=== PATIENT | male | born 1965 | race African-American/Black ===

== ENCOUNTER 2016-05-28 23:58 | Emergency (ER) | payer BC, OTHER ==
--- NOTE | ~2016-05-28 | EKG ---
PATIENT: MIKE GREEN UNIT #: [id number] Ventricular Rate: 85 BPM Atrial Rate: 72 BPM P-R Interval: 158 ms QRS Duration: 78 ms Q-T Interval: 360 ms QTC Calculation(Bezet): 428 ms P [place]: 66 degrees Calculated R [place]: 34 degrees Calculated T [place]: 36 degrees Diagnosis Line: Sinus rhythm with occasional Premature ventricular Diagnosis Line: complexes Diagnosis Line: T wave abnormality, consider inferior ischemia Diagnosis Line: Abnormal ECG Diagnosis Line: No previous ECGs available Diagnosis Line: Confirmed by ANNA HUYNH MD ([id number]) on 05/30/2016 Diagnosis Line: 10:56:45 PM INTERPRETING MD: LINO GUAJARDO
--- NOTE | ~2016-05-28 | EKG ---
PATIENT: MIKE GREEN UNIT #: [id number] Ventricular Rate: 51 BPM Atrial Rate: 51 BPM P-R Interval: 174 ms QRS Duration: 82 ms Q-T Interval: 410 ms QTC Calculation(Bezet): 377 ms P [place]: 34 degrees Calculated R [place]: 43 degrees Calculated T [place]: 6 degrees Diagnosis Line: Sinus bradycardia Diagnosis Line: Nonspecific T wave abnormality Diagnosis Line: Otherwise normal ECG Diagnosis Line: No previous ECGs available Diagnosis Line: Confirmed by ANNA HUYNH MD ([id number]) on 05/30/2016 Diagnosis Line: 10:57:22 PM INTERPRETING MD: LINO GUAJARDO
--- NOTE | ~2016-05-28 | CR72 ---
[facility] A Service of [facility] RADIOLOGY TEXT RESULTS PATIENT: MIKE GREEN LOCATION: [facility] : 65 UNIT #: [id number] AGE: [address]: Som Obrien MD SEX: M ORDER DR: [id number] [facility] [address] [place], [place] [address] [id number] MR#: [id number] Acc #: [id number] NAME: MIKE GREEN. : 1965 SEX: M STUDY DATE/TIME: 05/28/2016 21:35 UNIT: [facility] ROOM: STUDY DESCRIPTION: CR Chest Single View Portable Attending Physician: Som Obrien M.D. Ordering Physician: Ed Eugenio Amanda M.D. Primary Care Physician: No Primary Care Physician MEDICAL IMAGING REPORT This report is preliminary unless electronic signature is present EXAM Portable chest. HISTORY Left-sided chest pain x2 days. COMPARISON None. FINDINGS Portable view of the chest demonstrates elevation of the left hemidiaphragm, blunting of the left CP angle, may represent a small left effusion or left basilar atelectasis. Right lung is clear. Low lung volumes with mild pulmonary vascular congestion. Heart size within normal limits. Mediastinum unremarkable. Osseous structures appear normal. Dictated by... Tammy Neri M.D. THIS IS AN ELECTRONICALLY VERIFIED REPORT Tammy Neri M.D. at 05/29/2016 10:53 PM EVI/goldie TD: 05/29/2016 12:47 JOB #: [id number] MEDICAL IMAGING REPORT Page 1 of 1 COPY
[2016-05-28 20:53] LABS: EOSINOPHIL# 0.1 X10e3 (0-0.7); EOSINOPHIL% 1.8 % (0.0-7.0); HEMATOCRIT 45.6 % (38.0-50.0); HEMOGLOBIN 15.2 gm/dL (13.0-16.0); LYMPHOCYTE# 2.1 X10e3 (1.0-3.5); LYMPHOCYTE% 45.7 % (17.0-45.0); MEAN CORPUSCULAR HEMOGLOBIN 31.4 PG (28-34); MEAN CORPUSCULAR HGB CONC 33.4 g/dL (30-36); MEAN PLATELET VOLUME 8.4 FL (6.5-11.5); MONOCYTE# 0.2 X10e3 (0-1.0); MONOCYTE% 4.2 % (3.0-12.0); NEUTROPHIL# 2.1 X10e3 (1.5-7.1); NEUTROPHIL% 47.3 % (40-75); PLATELET COUNT 160 X10e3 (140-420); RED BLOOD COUNT 4.86 X10e (3.90-5.60); RED CELL DISTRIBUTION WIDTH 12.8 % (11.0-15.5); WHITE BLOOD COUNT 4.5 X10e3 (4.0-10.5)
[2016-05-28 20:56] LABS: DIFF IND NO
[2016-05-28 21:19] LABS: BILIRUBIN, DIRECT 0.1 mg/dL (0.0-0.2); BILIRUBIN,INDIRECT 0.5 mg/dL (0.0-0.9); BILIRUBIN,TOTAL 0.6 mg/dL (0.2-2.0); BUN/CREATININE RATIO 16.36; CALCIUM SERUM 8.9 mg/dL (8.4-10.2); CREATININE SERUM 1.1 mg/dL (0.6-1.4); GLOM FILT RATE Estimated 90.3 mL/min (>60); POTASSIUM 3.7 mmol/L (3.5-5.1); PROTEIN TOTAL SERUM 7.1 g/dL (6.0-8.3)
[2016-05-28 22:11] LABS: PARTIAL THROMBOPLASTIN TIME 26.7 SECONDS (23.5-31.3); PROTHROMBIN TIME (PATIENT) 10.7 SECONDS (9.6-11.5)
[2016-05-29 00:18] LABS: POC - CKMB 1.6 ng/mL (0.0-7.9); POC - TROPONIN <0.05 ng/mL (<=0.05)
[2016-05-29 00:38] LABS: POC - CKMB 3.2 ng/mL (0.0-7.9); POC - TROPONIN <0.05 ng/mL (<=0.05)
== END 2016-05-29 01:31 | disposition home or self-care (01) ==
LOC: CED 23:58
PROVIDERS: Emergency Medicine
DX: R07.89 Other chest pain (principal); M54.9 Dorsalgia, unspecified
CPT/HCPCS: 36415; 71010; 80048; 80076; 82553; 84484; 85025; 85610; 85730; 93005; 99284

== ENCOUNTER 2016-11-07 14:06 | Emergency (ER) | payer BC, OTHER ==
[~2016-11-07] VITALS: Ht 170.2 cm; Wt 83.9 kg
== END 2016-11-07 14:58 | disposition home or self-care (01) ==
LOC: CFTX 14:06 → CED 14:06 → CFTX 14:56
DX: M54.2 Cervicalgia (principal); Z90.49 Acquired absence of other specified parts of digestive tract
CPT/HCPCS: 99283